=== PATIENT | male | born 1990 | race Caucasian/White ===

== ENCOUNTER 2019-09-06 12:16 | Emergency (ER) | payer BC ==
--- NOTE | 2019-09-06 14:54 | EDM.PDOC ---
ED HPI GENERAL MEDICAL PROBLEM - General Chief Complaint: Gastrointestinal Problem Stated Complaint: HEADACHE/NAUSEA/BODY ACHES/DIARRHEA Time Seen by Provider: 09/06/19 13:00 Source of Information: Reports: Patient History Limitations: Reports: No Limitations - History of Present Illness INITIAL COMMENTS - FREE TEXT/NARRATIVE: Daquan is a 29 year old male presents for abdominal pain and diarrhea. Reports symptoms for the last 3 days. Reports diarrhea every 30 minutes. states his stools are yellow and mucus like, no blood. Reports associated nausea, headaches, stomach aches, bodyaches and a temp of 99.8. No cough, shortness of breath, sore throat, ear pain, or change in taste or smell. States he ate some questionable food recently but others who ate the same are not ill. No recent travel outside of the . Was in [place] recently. His father recently passes away and he spent a significant amount of time in [facility]. no known covid exposure. States he was moving an appliance a week ago and came into contact with mouse droppings. Duration: Day(s): (3) - Related Data Allergies Allergy/AdvReac Type Severity Reaction Status Date / Time No Known Allergies Allergy Verified 09/06/19 12:35 Home Meds: Home Meds . [No Known Home Meds] 09/06/19 [History] Past Medical History - Past Health History Medical/Surgical History: Denies Medical/Surgical History Social & Family History - Tobacco Use Smoking Status *Q: Never Smoker - Caffeine Use Caffeine Use: Reports: Coffee - Recreational Drug Use Recreational Drug Use: No ED ROS GENERAL - Review of Systems Review Of Systems: See Below Constitutional: Reports: Fever HEENT: Denies: Ear Pain, Throat Pain Respiratory: Denies: Shortness of Breath, Cough GI/Abdominal: Reports: Abdominal Pain, Diarrhea, Nausea. Denies: Bloody Stool, Hematochezia, Melena, Vomiting Neurological: Reports: Headache ED EXAM, GI/ABD - Physical Exam Exam: See Below Exam Limited By: No Limitations General Appearance: Alert, WD/WN, No Apparent Distress Ears: Normal External Exam, Normal Canal, Hearing Grossly Normal, Normal TMs Nose: Normal Inspection Throat/Mouth: Normal Inspection, Normal Lips, Normal Voice, No Airway Compromise Neck: Normal Inspection Respiratory/Chest: No Respiratory Distress, Lungs Clear Cardiovascular: Normal Peripheral Pulses, Regular Rate, Rhythm, No Murmur GI/Abdominal Exam: Normal Bowel Sounds, Soft, Non-Tender Neurological: Alert, Oriented, Normal Cognition Psychiatric: Normal Affect, Normal Mood Skin Exam: Warm, Dry, Normal Color Course - Vital Signs Last Recorded V/S: Last Vital Signs Temp 97.3 F 09/06/19 12:26 Pulse 98 09/06/19 12:26 Resp 16 09/06/19 12:26 BP 145/103 H 09/06/19 12:26 Pulse Ox 98 09/06/19 12:26 - Orders/Labs/Meds Orders: Active Orders 24 hr Category Date Time Status CORONAVIRUS COVID-19 PCR PHL Stat Lab 09/06/19 13:50 Received Labs: Laboratory Tests 09/06/19 09/06/19 Range/Units 13:59 13:59 WBC 6.98 (4.23-9.07) K/mm3 RBC 5.46 (4.63-6.08) M/mm3 Hgb 16.3 (13.7-17.5) gm/dl Hct 47.9 (40.1-51.0) % MCV 87.7 (79.0-92.2) fl MCH 29.9 (25.7-32.2) pg MCHC 34.0 (32.2-35.5) g/dl RDW Std Deviation 39.7 (35.1-43.9) fL Plt Count 178 (163-337) K/mm3 MPV 10.1 (9.4-12.3) fl Neut % (Auto) 57.4 (34.0-67.9) % Lymph % (Auto) 21.2 L (21.8-53.1) % [place] % (Auto) 19.1 H (5.3-12.2) % Eos % (Auto) 1.6 (0.8-7.0) Baso % (Auto) 0.4 (0.1-1.2) % Neut # (Auto) 4.01 (1.78-5.38) K/mm3 Lymph # (Auto) 1.48 (1.32-3.57) K/mm3 [place] # (Auto) 1.33 H (0.30-0.82) K/mm3 Eos # (Auto) 0.11 (0.04-0.54) K/mm3 Baso # (Auto) 0.03 (0.01-0.08) K/mm3 Manual Slide Review Normal smear Sodium 140 (136-145) mEq/L Potassium 4.2 (3.5-5.1) mEq/L Chloride 104 (98-107) mEq/L Carbon Dioxide 26 (21-32) mEq/L Anion Gap 14.2 (5-15) BUN 13 (7-18) mg/dL Creatinine 1.0 (0.7-1.3) mg/dL Est Cr Clr Drug Dosing 136.13 mL/min Estimated GFR (MDRD) > 60 (>60) mL/min BUN/Creatinine Ratio 13.0 L (14-18) Glucose 147 H (74-106) mg/dL Calcium 9.2 (8.5-10.1) mg/dL Total Bilirubin 0.3 (0.2-1.0) mg/dL AST 25 (15-37) U/L ALT 40 (16-63) U/L Alkaline Phosphatase 53 (46-116) U/L C-Reactive Protein 4.1 H* (<1.0) mg/dL Total Protein 7.7 (6.4-8.2) g/dl Albumin 3.8 (3.4-5.0) g/dl Globulin 3.9 gm/dL Albumin/Globulin Ratio 1.0 (1-2) - Re-Assessments/Exams Free Text/Narrative Re-Assessment/Exam: 09/06/19 14:47 I reviewed his lab results with him. He will be notified of his covid result in about 3 days. Likely from something he ate. we discussed stool studies, I would recommend these if he is not improving . Encouraged fluids and probiotic. If his symptoms have not improved much in 1 week recommend seeing his PCP and possibly getting stool studies. I see no indication of hantavirus at this time. His WBCs, liver enzymes and platlets are well within normal limits. He is instructed to return to the er should his symptoms change or worsen discharge instructions as documented. Departure - Departure Time of Disposition: 14:54 Disposition: Home, Self-Care 01 Condition: Good Clinical Impression: Gastroenteritis - Discharge Information *PRESCRIPTION DRUG MONITORING PROGRAM REVIEWED*: No *COPY OF PRESCRIPTION DRUG MONITORING REPORT IN PATIENT ROSANNE: No Referrals: PCP,None [Primary Care Provider] - Forms: ED Department Discharge Additional Instructions: you were tested for covid today. someone will notify you if the test is positive or negative in about 3 days. Recommend you quarantine until you know your results. Recommend clear fluids and bland foods. Recommend bread, rice, applesauce, toast, egg whites, etc. Recommend yogurt or a probiotic, these are available over the counter. If you continue to have symptoms beyond 5-7 days follow-up with your PCP. Please return to the ER should your symptoms change or worsen. Sepsis Event Note (ED) - Evaluation Sepsis Screening Result: No Definite Risk - Focused Exam Vital Signs: Vital Signs Temp Pulse Resp BP Pulse Ox 09/06/19 12:26 97.3 F 98 16 145/103 H 98 - My Orders Last 24 Hours: My Active Orders 09/06/19 13:50 CORONAVIRUS COVID-19 PCR PHL Stat - Assessment/Plan Last 24 Hours: My Active Orders 09/06/19 13:50 CORONAVIRUS COVID-19 PCR PHL Stat
== END 2019-09-06 15:25 | disposition home or self-care (01) ==
LOC: JD.ED 12:16
DX: K52.9 Noninfective gastroenteritis and colitis, unspecified (principal); Z20.828 Contact with and (suspected) exposure to other viral communicable diseases
CPT/HCPCS: 36415; 80053; 85025; 86140; 99282; 99284; U0002